=== PATIENT | female | born 1990 | race African-American/Black ===

== ENCOUNTER 2017-11-15 13:06 | Outpatient (CLI) | payer OTHER ==
[~2017-11-15 13:06] MED LIST: KETO10TA2 PO
== END 2017-11-15 15:02 | disposition home or self-care (01) ==
LOC: RAD 13:06
DX: M25.50 Pain in unspecified joint (principal); M17.10 Unilateral primary osteoarthritis, unspecified knee

== ENCOUNTER → 2017-11-21 | Emergency (ER) | payer OTHER ==
[~2017-11-21] VITALS: Ht 170.2 cm; Wt 110.2 kg
== END | disposition home or self-care (01) ==
LOC: ER 15:30
DX: S00.83XA Contusion of other part of head, initial encounter (principal); W18.39XA Other fall on same level, initial encounter; Y93.89 Activity, other specified; Y92.091 Bathroom in other non-institutional residence as the place of occurrence of the external cause; Y99.8 Other external cause status

== ENCOUNTER 2018-12-08 09:20 | Emergency (ER) | payer OTHER ==
[~2018-12-08] VITALS: Ht 170.2 cm; Wt 89.8 kg
== END 2018-12-08 10:35 | disposition home or self-care (01) ==
LOC: ER 09:20
DX: H10.89 Other conjunctivitis (principal)

== ENCOUNTER 2019-04-25 16:21 | Emergency (ER) | payer OTHER ==
[~2019-04-25] VITALS: Ht 165.1 cm; Wt 99.8 kg
== END 2019-04-25 21:50 | disposition home or self-care (01) ==
LOC: ER 16:21
DX: N39.0 Urinary tract infection, site not specified (principal); R10.2 Pelvic and perineal pain

== ENCOUNTER 2022-05-06 10:02 | Outpatient (CLI) | payer OTHER | END 2022-05-06 10:09 | disposition home or self-care (01) | LOC: SONOGRAMA 10:02 | DX: N93.1 Pre-pubertal vaginal bleeding (principal) ==